=== PATIENT | female | born 1990 | race American Indian/Alaskan Native ===

== ENCOUNTER 2019-01-28 04:57 | Emergency (ER) | payer MEDICAID ==
[2019-01-28 05:05] VITALS: BP 115/64
[2019-01-28 06:03] LABS: HCG Qualitative,Urine Negative (Negative)
[2019-01-28 06:05] LABS: Bacteria,Urine 1+ /HPF (Negative); Bilirubin,Urine NEG (Negative); Blood,Urine NEG (Negative); Color,Urine Yellow (Yellow); Mucus,Urine 1+ /HPF; Protein,Urine <15 mg/dL mg/dL (Negative); Urobilinogen,Urine < 2.0 mg/dL (<2.0)
[2019-01-28] MEDS ORDERED: FLAGYL PO ONE (07:35)
[2019-01-28] MEDS ORDERED: ZITHROMAX PO ONE (07:35)
--- NOTE | 2019-01-28 07:40 | Emergency Department Report ---
Chief Complaint: Urogenital-Female Stated Complaint: VAGINAL IRRITATION Time Seen by Provider: 01/28/19 07:24 - HPI History of Present Illness: This is a 28-year-old female with no prior medical history of present today complaining of exposure to chlamydia. Patient states that last week her sexual partner was told he had chlamydia. Patient states that she has social intercourse with this same partner yesterday night. Patient presents today because she is worried that she has been exposed to chlamydia and would like to be treated. Patient reports mild vaginal pain and irritation since this morning. She denies fevers/chills/dysuria/vaginal bleeding/vaginal discharge. - ROS Review of Systems: As noted in HPI All system reviewed and are negative - Exam Vital Signs: Vital Signs 01/28/19 05:02 Temperature 98.8 F Pulse Rate 91 H Respiratory 16 Rate Blood Pressure 115/64 O2 Sat by Pulse 99 Oximetry Physical Exam: General: Patient is alert and oriented 3, she is in no acute distress Abdomen: Nontender to palpation on all quadrants MSE screening note: Focused history and physical exam performed. Due to findings the following was ordered: ED Medical Decision Making - Medical Decision Making 28-year-old female presents with STD exposure to chlamydia. ED course: Patient received, azithromycin 1 g, Flagyl 2 g. Discussed with patient STD exposure and symptoms. Discussed with patient urine findings and treatment Discussed prophylaxis treatment patient is to abstain from sex 7-10 days as treatment. Discussed patient partner knowledge and treatment. Discussed the follow-up with the health department for further STD testing. Patient's alert and oriented times 3. Vital signs are normal patient is in no acute discharge. Patient will be discharged home with instructions. ED Disposition for MSE Clinical Impression: Exposure to STD Disposition: DC-01 TO HOME OR SELFCARE Is pt being admited?: No Does the pt Need Aspirin: No Condition: Stable Instructions: Chlamydia Infection (ED), Sexually Transmitted Diseases (ED), Safe Sex (ED) Additional Instructions: Make sure to follow up with the primary care physician as discussed. Urogenital medicines to treat Chlamydia and bacterial vaginitis in the ED today You need to go to the DEPARTMENT or subsequent medical clinic as referred for further STD testing. Do not have intercourse in 7-10 days of receiving treatment. Make sure partner is treated and have waited 7-10 days before having intercourse If you have any worsening symptoms or develop new symptoms please return to ED immediately. Referrals: [facility] [Outside] - 3-5 Days [facility] [Outside] - 3-5 Days [facility] [Outside] - 3-5 Days Forms: Accompanied Note, Work/School Release Form(ED) Time of Disposition: 07:39
== END 2019-01-28 07:55 | disposition home or self-care (01) ==
LOC: ED 04:57
DX: Z20.2 Contact with and (suspected) exposure to infections with a predominantly sexual mode of transmission (principal)
CPT/HCPCS: 81001; 81025; 99283